=== PATIENT | female | born 1975 | race Caucasian/White ===

== ENCOUNTER 2020-07-08 11:01 | Emergency (ER) | payer OTHER ==
[~2020-07-08] VITALS: Ht 165.1 cm; Wt 61.2 kg
[2020-07-08] MEDS ORDERED: PREDNISONE20 MG PO (11:53)
[2020-07-08] MEDS ORDERED: SKELAXIN800 MG PO (11:53)
== END 2020-07-08 12:40 | disposition home or self-care (01) ==
LOC: ER 11:01
DX: S33.5XXA Sprain of ligaments of lumbar spine, initial encounter (principal); X50.0XXA Overexertion from strenuous movement or load, initial encounter; Y93.89 Activity, other specified; Y92.098 Other place in other non-institutional residence as the place of occurrence of the external cause; Y99.8 Other external cause status